=== PATIENT | male | born 1965 | race Caucasian/White ===

== ENCOUNTER 2021-01-25 08:13 | Outpatient (CLI) | payer BC, SELFPAY ==
--- NOTE | 2021-01-25 08:20 | ECG_ITS ---
Measurements Intervals Harper Rate: 82 P: 74 TX: 154 QRS: 57 QRSD: 96 T: 55 QT: 326 QTc: 381 Interpretive Statements SINUS RHYTHM BASELINE ARTIFACT- I, III, AVL NORMAL ECG Electronically Signed On 01-25-2021 8:58:30 EXCHANGE FLOOR MANAGER by Taras Merritt D.O.
== END 2021-01-25 08:14 | disposition home or self-care (01) ==
LOC: ANHSURGERY 08:18
PROVIDERS: PCP Family Medicine Sports Medicine; Visit Provider Otolaryngology
DX: F17.200 Nicotine dependence, unspecified, uncomplicated (principal); Z01.818 Encounter for other preprocedural examination
CPT/HCPCS: 93005

== ENCOUNTER 2021-01-29 02:12 | Day surgery (SDC) | payer BC, SELFPAY ==
--- NOTE | 2021-01-24 14:03 | PC.NURSE ---
Report to the Outpatient Waiting Room, entrance under the green pavilion located off [facility], at time _0900_ on date 01/29/21_. OR Time: _1100. - You and your visitor will be asked a series of questions to screen for COVID 19 for your protection. - A mask is required within the hospital. - Only one visitor is allowed at this time. Patient visitors will be guided where to wait when not with patient. Preoperative COVID Testing Requirements: No COVID Test needed if: (proof is required; if not received patient will have Rapid Test prior to entry) - Patient has received COVID Vaccine at least 14 days prior to procedure date or - Patient has positive COVID test result within last 90 days of surgery date. COVID Test needed if above criteria is not met If not COVID vaccinated a COVID test must be conducted within 72 hours of surgery and patient is asked to isolate self from time of testing until procedure. You will go to the [employer] [facility] Site for your COVID testing. The [employer] [facility] Testing site is located at the corner of [address] [facility]. You will only be called if COVID results are positive and your surgeon may reschedule your elective surgery date. Patients may have clear liquids (water, carbonated beverages, clear teas, apple juice) until 3 hours prior to surgery with a maximum of 20 ounces. - No food from midnight until time of surgery - Infants may have breast milk until 4 hours before surgery, infant formula 6 hours prior to surgery. - Children will be allowed to drink immediately following surgery. If applicable, please bring a bottle or sippy cup to assist with drinking. Juice, water, soda, and popsicles are readily available. For infants on formula, please bring formula the day of surgery. Pacifiers are allowed. Take the following medications with a SIP of water the morning of surgery: ____NONE Medications to discontinue per physician NONE Date to take last dose Please no make-up, nail dominican, hairspray, perfume, deodorant, or body powder the day of surgery. No jewelry (including any body piercings) or valuables the day of surgery, leave them at home. Please take a shower or bath the night before, or the morning of, surgery with an antibacterial soap. Wear comfortable, loose fitting clothing. Children are encouraged to wear pajamas. - Jewelry must be removed prior to entering the operating room. Rings and piercings that are not removed may be cut off. - The hospital will not accept responsibility for valuables. - Please leave all valuables, including medications, at home the day of surgery. If you are going home after surgery, a licensed subway train driver must drive you home. - NO public transportation without another adult. - We recommend that an adult stay with you for 24 hours following discharge. - We also recommend that you do not drive, make important decision, drink alcoholic beverages, or take any drugs that were not prescribed by your health care provider for at least 24 hours after your discharge time. For Pediatric surgeries, we recommend two adults accompany the child home (only one inside the building at this time). Follow any additional instructions given to you from your surgeon. Telephone instructions given to __PATIENT and asked if any additional questions and then verbalized understanding. Patient advised to call surgeon office or pre surgery nurse liaison [phone] if any additional questions.
[2021-01-24 14:18] VITALS: BMI 29.9
[2021-01-29] VITALS (7 sets, daily range): BP systolic 136–169; BP diastolic 85–99; PULSE 68–89; RESP 13–18; TEMP 36–36.2; O2SAT 94–100; BMI 29.2
[2021-01-29] MEDS: LACTATED RINGERS 1,000 ML 30 ML IV CONT ×2 (09:28→12:38)
--- NOTE | 2021-01-29 09:30 | WPDANESEPPF ---
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 Patient Data Age: 55 Gender: M Height: 1.83 m Weight: 98 kg Allergies Allergy/AdvReac Type Severity Reaction Status Date / Time acetaminophen [From Tylenol] Allergy Intermediate EYE Verified 01/29/21 09:13 SWELLING AND ITCHING ibuprofen Allergy Intermediate EYE Verified 01/29/21 09:13 SWELLING AND ITCHING naproxen [From Aleve] Allergy Intermediate EYE Verified 01/29/21 09:13 SWELLING AND ITCHING Home Medications Medication Instructions Recorded Confirmed Type No Home Medications 01/24/21 01/24/21 History Patient hx anesthesia problems: none Family hx anesthesia problems: none Results Review: All pre-operative results and documents have been reviewed as part of the pre-operative evaluation. PMFSH Past Medical History Medical History Obesity Smoker Surgical History Surgical History H/O colonoscopy Social History Social History Smoking packs per day: 2 Smoking cigarettes per day: 40.0 Years smoked: 30 Smoking pack-years: 60.00 Smoking status: Current every day smoker Tobacco type: cigarettes Alcohol intake: current Drinks per week: 12 Living arrangements: alone Anes - Eval Final PreProcedure Day of Procedure 01/29/21 09:30 Patient weight: obese Heart: regular rate and rhythm Lungs: clear to auscultation Airway: Mallampati scale class II Neurological: alert and oriented Last oral intake: >/= 8 hours ASA classification: III Emergent: no Anesthetic plan: proceed Anesthesia type and monitoring: general GIVS and standard monitoring Results Review: All pre-operative results and documents have been reviewed as part of the pre-operative evaluation. Informed Consent: The patient's anesthetic plan and its attendant risks and benefits were discussed with the patient/family/POA. Questions were solicited and answers provided to the satisfaction of the patient/family/POA.
--- NOTE | 2021-01-29 09:40 | SUR.PREOP ---
DR KOHLI SPOKE TO DR DE SANTIAGO, OR STAFF WILL NESTOR PARNELL IN OR
--- NOTE | 2021-01-29 09:57 | WPDHPUPDATE1 ---
History and Physical Update Update Date/Time: 01/29/21 09:57 History and Physical has been reviewed, including an updated exam of the patient. There are NO changes in the patient's condition. Risks, benefits, and alternatives have been discussed and questions answered. Patient agrees to proceed with procedure. LEFT superficial parotidectomy.
[2021-01-29] MEDS: ceFAZolin 2 GM/D5W 50 ML 2 GM/50 ML BAG IVPB (10:37)
[2021-01-29] MEDS: LIDO 1%/EPINEPHRINE 1:100,000 50 ML VIAL 10 ML INFILTRATE (11:13)
--- NOTE | 2021-01-29 12:40 | W.PM.PROC2 ---
Procedure Note - Detailed Date of Procedure 01/29/21 Pre-op Diagnosis neoplasm of parotid gland Post-op Diagnosis same Procedure Performed left superficial parotidectomy with facial nerve monitoring Surgeon Garret Last MD Anesthesia general Indications left tail of parotid mass Findings 2.5cm left tail of parotid mass. Greater auricular nerve preserved. No VII injury. No drain needed. Description of Procedure After informed consent was obtained the time out procedure was performed the patient was brought to the operating room placed on the operating table in the supine position. The patient was placed under general endotracheal anesthesia. A modified Farhat incision was marked out in the patient's left preauricular crease. 1% lidocaine with one 100,000 epinephrine was injected into the marked incision. The patient was prepped and draped in the usual fashion. A #15 scalpel was used to make the skin incision. This was carried down to the level of the greater auricular nerve.this nerve was dissected superiorly up to the patient's earlobe. The preauricular incision was also carried down to the level of the parotid fascia. The underlying tumor was easily palpated. Next the preauricular incision was carried down along the tragal cartilage and the tragal pointer using a fine dissector and bipolar electrocautery. The greater auricular nerve was preserved.? The external jugular vein was sacrificed. The posterior belly of the digastric muscle was identified after retracting the sternocleidomastoid muscle laterally. The tumor was at the tail of the parotid, anterior to the SCM and inferior to the mastoid. This was carefully dissected free from the parotid gland. The greater auricular nerve wrapped around the tumor. This was meticulously dissected free from the surrounding parotid and fascial tissue until it was completely removed, along with a portion of healthy parotid tissue. No evidence of remaining tumor was present. Once the specimen was passed off the field the wound bed was carefully irrigated using warm saline solution, there is no evidence of any significant bleeding. The upper and lower divisions of the facial nerve stimulated. The wound was then closed in layers using 3-0 Vicryl and 4-0. A fluff dressing along with a jaw bra were then placed on the patient. The patient was then awakened from general anesthesia, extubated and transferred to recovery in stable condition. Estimated Blood Loss 10 Drains No Packing No Pathology yes (left tail of parotid mass) Complications No immediate complications Condition stable Disposition PACU
--- NOTE | 2021-01-29 12:53 | SUR.PHASEI ---
1250 - dr saldana at bedside talking with pt.
== END 2021-01-29 14:30 | disposition home or self-care (01) ==
PROVIDERS: PCP Family Medicine Sports Medicine; Visit Provider Otolaryngology
PROC: (CPT 42410; principal; 2021-01-29 11:00)
DX: D11.0 Benign neoplasm of parotid gland (principal); F17.210 Nicotine dependence, cigarettes, uncomplicated; E66.9 Obesity, unspecified; Z68.29 Body mass index [BMI] 29.0-29.9, adult
CPT/HCPCS: 42415; 88305; 93005; A9270; J0330; J0690; J2250; J2270; J2405; J2704; J7120